=== PATIENT | female | born 1995 | race Hispanic/Latino ===

== ENCOUNTER → 2020-10-30 | Outpatient (CLI) | payer OTHER | END | disposition home or self-care (01) | LOC: OIH 13:07 → EDBD 13:07 | PROVIDERS: ATTEND Family Medicine | DX: M25.551 Pain in right hip (principal) | CPT/HCPCS: 73502 ==

== ENCOUNTER → 2021-03-08 | Outpatient (CLI) | payer OTHER | END | disposition home or self-care (01) | LOC: RAH 14:22 | PROVIDERS: ATTEND Orthopaedic Surgery | DX: M87.851 Other osteonecrosis, right femur (principal) | CPT/HCPCS: 73721 ==